=== PATIENT | male | born 1995 | race Caucasian/White ===

== ENCOUNTER 2017-05-20 22:40 | Emergency (ER) | payer SELFPAY ==
[~2017-05-20] VITALS: Ht 167.6 cm; Wt 65.0 kg
[2017-05-20] MEDS ORDERED: MORPHINE SULFATE 4 MG/ML CPJ (NOT FOR IM USE) IV STA (23:52)
[2017-05-21] MEDS ORDERED: BACITRACIN ZINC OINT UDPKT TOP ONE
[2017-05-21] MEDS ORDERED: LORAZEPAM 2MG/ML CPJ IV ONE
[2017-05-21] MEDS ORDERED: LIDOCAINE HCL 1% 20ML VIAL (Pyxis) INJ MC ONE (01:45)
[2017-05-21] MEDS ORDERED: KETOROLAC 30MG/ML VIAL IV ONE (03:00)
[2017-05-21] MEDS ORDERED: CEFAZOLIN 1000MG PREMIX 50 ML IV ONE (03:00)
[2017-05-21 03:10] VITALS: BP 128/78
[2017-05-21] MEDS ORDERED: TETANUS, DIPHTHERIA, PERTUSSIS VAC/PF 0.5ML (>7YR OLD) IM ONE (03:45)
== END 2017-05-21 04:05 | disposition home or self-care (01) ==
LOC: ER 22:40
DX: S62.660B Nondisplaced fracture of distal phalanx of right index finger, initial encounter for open fracture (principal); S61.214A Laceration without foreign body of right ring finger without damage to nail, initial encounter; S60.417A Abrasion of left little finger, initial encounter; Y09 Assault by unspecified means; W22.8XXA Striking against or struck by other objects, initial encounter; Y93.89 Activity, other specified; Y99.8 Other external cause status; Y92.89 Other specified places as the place of occurrence of the external cause
CPT/HCPCS: 12001; 29130; 73130; 90471; 90715; 96365; 96375; 99284; A4217; J0690; J1885; J2060; J2270; J3490; X7700; Z7610